=== PATIENT | male | born 2005 | race American Indian/Alaskan Native ===

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

== ENCOUNTER 2025-06-23 13:06 | Emergency (ER) | payer MEDICAID ==
[~2025-06-23] VITALS: Ht 172.7 cm; Wt 75.1 kg
[~2025-06-23 13:06] MED LIST: HYDR28CR14 TOP
[2025-06-23 13:27] VITALS: BP 120/78; PULSE 86; RESP 18; TEMP 97.3; O2SAT 99
--- NOTE | 2025-06-23 14:17 | RADIOLOGY REPORT ---
EXAM: DI LUMBAR SPINE LIMITED INDICATION: LOWER BACK PAIN TECHNIQUE: 2 views of the lumbar spine COMPARISON: None FINDINGS/IMPRESSION: No radiographic evidence of an acute osseous abnormality. There is no acute fracture, osseous malalignment, or aggressive focal osseous lesion. Mild stool burden within the ascending to transverse colon. Congenitally short pedicles with the appearance of bony foraminal narrowing.
--- NOTE | 2025-06-23 14:55 | Physician Documentation ---
History of Present Illness ~ Chief Complaint: Back Pain Stated Complaint: BACK PAIN Time Seen by MD: 14:05 Primary Medical Doctor: [facility] Patient is a 20-year-old male who presents emergency department for evaluation of low back pain sustained this morning after twisting to gravis short when he was getting out of bed. Patient reporting he has had a previous history of this sometime in the last year that resolved after a couple of days. Patient denies taking any Tylenol or ibuprofen to help with discomfort but reports that he has dad rubs and ointment on his back that seemed to help. Medication Reconciliation Allergies: Coded Allergies: No Known Allergies (Unverified , 06/23/25) Scheduled Hydrocortisone (hydrocortisone 1% cream), 1 APPLIC TOP Q12H Past Medical History Past Medical History: No Pertinent History Past Surgical History: noncontributory Drug Use: none Lives with: Father Lives In: Home Occupation: student Review of Systems ROS As stated above in the HPI, otherwise all systems are reviewed and negative. Physical Exam Physical Exam Vital Signs: Temperature: 97.3, Source: Oral, Heart Rate: 86, Respiratory Rate: 18, BP: 120/78, Pulse Oximetry: 99, Weight: 75.100 Oxygen Flow Rate: 0 Physical Exam VITALS: Reviewed and as above. GENERAL: Alert, no apparent distress. HEENT: Normocephalic, atraumatic, PERRL, EOMI, dry mucosa, no erythema RESPIRATORY: Lungs clear, normal breath sounds, no respiratory distress. CHEST: No accessory muscle use, no retractions CV: Regular rate, rhythm, no edema, no murmur, No: JVD GI: Soft, non-tender, bowels sounds present, no rebound, guarding, or rigidity BACK: No CVA tenderness, or swelling MUSCULOSKELETAL No deformities, no edema SKIN: Warm and dry, no rash NEURO: Oriented x4, No motor or sensory deficit PSYCH: Normal mood and affect, no agitation Progress Results/Orders Results/Orders Vital Signs 06/23/25 13:27 Temp 97.3 Pulse 86 Resp 18 B/P (MAP) 120/78 Pulse Ox 99 O2 Flow Rate 0 Medical Decision Making Findings This patient presents with back pain most consistent with lumbosacral strain/sprain. Differential diagnoses includes lumbago versus musculoskeletal spasm / strain versus sciatica. Less likely sciatica as straight leg raise test was negative. No back pain red flags on history or physical. Presentation not consistent with malignancy (lack of history of malignancy, lack of B symptoms), fracture (no trauma, no bony tenderness to palpation), cauda equina (no bowel or urinary incontinence/retention, no saddle anesthesia, no distal weakness), AAA, viscus perforation, osteomyelitis or epidural abscess (no IVDU, vertebral tenderness), renal colic, pyelonephritis (afebrile, no CVAT, no urinary symptoms). Given the clinical picture, no indication for imaging at this time. Patient has lidocaine patches at home he will apply them every 12 hours take off for 12 hours patient's dad also reports that they have gel to rub topically when needed. We will use Tylenol ibuprofen as needed for discomfort. Patient will follow up with the primary care provider. Return to the emergency department w ith any worsening of his current symptoms or any additional concerning symptoms that we discussed here today i.e. increased pain inability to ambulate twist spinal pain incontinence of bowel or bladder or any other concerning symptoms. Differential Dx:Considerations: Include: AAA, Aortic dissection, Appendicitis, Bowel obstruction, Cholelithiasis, Cholangitis, DJD, Fracture, Hepatitis, HNP, Musculoskeletal pain, Pancreatitis, Pyelonephritis, Renal infarction, Strain, Urinary obstruction, Urolithiasis, Urinary tract infection, Other Departure Disposition: 01 HOME / SELF CARE / HOMELESS Impression: Primary Impression: Back problem Additional Impressions: Strain of lumbar region Lumbosacral strain Condition: Stable Discharge Instructions: Acute Back Pain, Adult, Lumbosacral Strain Additional Instructions: This patient presents with back pain most consistent with lumbosacral strain/sprain. Differential diagnoses includes lumbago versus musculoskeletal spasm / strain versus sciatica. Less likely sciatica as straight leg raise test was negative. No back pain red flags on history or physical. Presentation not consistent with malignancy (lack of history of malignancy, lack of B symptoms), fracture (no trauma, no bony tenderness to palpation), cauda equina (no bowel or urinary incontinence/retention, no saddle anesthesia, no distal weakness), AAA, viscus perforation, osteomyelitis or epidural abscess (no IVDU, vertebral tenderness), renal colic, pyelonephritis (afebrile, no CVAT, no urinary symptoms). Given the clinical picture, no indication for imaging at this time. Patient has lidocaine patches at home he will apply them every 12 hours take off for 12 hours patient's dad also reports that they have gel to rub topically when needed. We will use Tylenol ibuprofen as needed for discomfort. Patient will follow up with the primary care provider. Return to the emergency department with any worsening of his current symptoms or any additional concerning symptoms that we discussed here today i.e. increased pain inability to ambulate twist spinal pain incontinence of bowel or bladder or any other concerning symptoms. Referrals: NO PRIMARY CARE PROVIDER (PCP) Education Educated: Patient Educated regarding: diagnosis, treatment, need for follow up Signature Scribe Signature: A Attestation: Scribed for Kae Beal by JEEVAN Griggs . 06/23/25 14:55 KAE BEAL Jun 23, 2025 14:55
== END 2025-06-23 15:20 | disposition home or self-care (01) ==
LOC: ER 13:06
DX: S39.012A Strain of muscle, fascia and tendon of lower back, initial encounter (principal); Z79.899 Other long term (current) drug therapy; X58.XXXA Exposure to other specified factors, initial encounter; Y93.89 Activity, other specified; Y92.89 Other specified places as the place of occurrence of the external cause; Y99.8 Other external cause status
CPT/HCPCS: 72100; 99283; A4615